=== PATIENT | female | born 1995 | race Caucasian/White ===

== ENCOUNTER 2020-08-24 23:53 | Emergency (ER) | payer MEDICAID ==
[~2020-08-24] VITALS: Ht 167.6 cm; Wt 68.0 kg
[2020-08-25] MEDS ORDERED: ONDANSETRON HCL 4MG/2ML INJ IV STA (00:36)
[2020-08-25] MEDS ORDERED: LORAZEPAM 2MG/ML CPJ IV STA (00:36)
[2020-08-25] MEDS ORDERED: SODIUM CHLORIDE 0.9% 1,000 ML IV ONE (00:45)
[2020-08-25 01:09] LABS: BASOPHILS % 0.8 % (0.0-2.0); EOSINOPHILS % 1.1 % (0.0-5.0); HEMATOCRIT. 42.5 % (36.0-48.0); HEMOGLOBIN. 14.4 g/dL (12.0-16.0); LYMPHOCYTES % 23.4 % (20.0-50.0); MEAN CORPUSCULAR HEMOGLOBIN 29.8 pg (28.0-32.0); MEAN CORPUSCULAR VOLUME 88.2 fL (81.0-99.0); MEAN PLATELET VOLUME 9.3 fl (7.4-10.4); MONOCYTES % 5.1 % (2.0-8.0); NEUTROPHILS % 69.6 % (40.0-76.0); PLATELET 239 x1000/uL (130-400); RED BLOOD CELL COUNT 4.82 mill/uL (4.2-5.4); RED CELL DISTRIBUTION WIDTH 12.9 % (11.6-14.6)
[2020-08-25 01:19] LABS: CHLORIDE 110 mEq/L (98-107)
[2020-08-25 02:30] VITALS: BP 115/81
== END 2020-08-25 02:30 | disposition home or self-care (01) ==
LOC: ER 23:53
DX: T40.7X1A Poisoning by cannabis (derivatives), accidental (unintentional), initial encounter (principal); R00.2 Palpitations; F12.188 Cannabis abuse with other cannabis-induced disorder; F12.180 Cannabis abuse with cannabis-induced anxiety disorder; Y92.89 Other specified places as the place of occurrence of the external cause
CPT/HCPCS: 36415; 71045; 80053; 81025; 84484; 85025; 96361; 96374; 96375; 99284; J2060; J2405; J7030